=== PATIENT | female | born 1960 | race African-American/Black ===

== ENCOUNTER → 2018-02-09 | Outpatient (CLI) | payer MEDICARE | LOC: M LRY 12:50 | DX: M17.0 Bilateral primary osteoarthritis of knee (principal); M25.561 Pain in right knee | CPT/HCPCS: 73564; G0463 ==

== ENCOUNTER → 2018-03-13 | Outpatient (CLI) | payer MEDICARE | LOC: M LRY 08:38 | DX: Z13.228 Encounter for screening for other metabolic disorders (principal); E78.5 Hyperlipidemia, unspecified; E55.9 Vitamin D deficiency, unspecified; M54.5 Low back pain; M25.562 Pain in left knee; F32.9 Major depressive disorder, single episode, unspecified; F41.1 Generalized anxiety disorder | CPT/HCPCS: 84443 ==

== ENCOUNTER → 2018-03-13 | Outpatient (REF) | payer MEDICARE ==
[2018-03-13 12:13] LABS: BASO % 0.6 % (0.0-1.0); EOS # 0.1 10^3/uL (0.0-0.50); EOS % 1.2 % (0.0-3.0); HEMATOCRIT 35.8 % (36.0-47.0); HEMOGLOBIN 11.6 g/dl (12.0-15.5); IMMATURE GRANULOCYTE % 0.2 % (0-3.0); LYMPH # 2.6 10^3/uL (1.5-4.5); LYMPH % 52.9 % (24.0-44.0); MEAN CORPUSCULAR HEMOGLOBIN 30.1 pg (27.0-33.0); MEAN CORPUSCULAR HGB CONC 32.4 g/dl (32.0-36.5); MONO # 0.4 10^3/uL (0.0-0.8); MONO % 7.5 % (0.0-5.0); NEUTROPHILS # 1.8 10^3/uL (1.8-7.7); NEUTROPHILS % 37.6 % (36.0-66.0); PLATELET COUNT, AUTOMATED 279 10^3/uL (150-450); RED BLOOD COUNT 3.85 10^6/uL (4.00-5.40); RED CELL DISTRIBUTION WIDTH 14.3 % (11.5-14.5); WHITE BLOOD COUNT 4.8 10^3/uL (4.0-10.0)
[2018-03-13 12:21] LABS: ALBUMIN 3.6 GM/DL (3.2-5.2); ALBUMIN/GLOBULIN RATIO 0.95 (1.00-1.93); ALKALINE PHOSPHATASE 76 U/L (45-117); ALT/SGPT 26 U/L (12-78); ANION GAP 4 MEQ/L (8-16); AST/SGOT 97 U/L (7-37); BILIRUBIN,TOTAL 0.4 MG/DL (0.2-1.0); BLOOD UREA NITROGEN 9 MG/DL (7-18); CALCIUM LEVEL 9.3 MG/DL (8.5-10.1); CARBON DIOXIDE LEVEL 31 MEQ/L (21-32); CHLORIDE LEVEL 104 MEQ/L (98-107); CHOLESTEROL LEVEL 271 MG/DL (<200); CHOLESTEROL RISK RATIO 4.169 (<5); CREATININE FOR GFR 0.75 MG/DL (0.55-1.30); GLOMERULAR FILTRATION RATE > 60.0 (>51); GLUCOSE, FASTING 87 MG/DL (70-100); HDL CHOLESTEROL 65 MG/DL (>40); LDL CHOLESTEROL 167 MG/DL (<100); NON-HDL-C 206 MG/DL; POTASSIUM SERUM 4.6 MEQ/L (3.5-5.1); PTH INTACT 91.5 PG/ML (18.5-88.0); SODIUM LEVEL 139 MEQ/L (136-145); TOTAL 25(OH) VITAMIN D 12.6 NG/ML (30.0-100.0); TOTAL PROTEIN 7.4 GM/DL (6.4-8.2); TRIGLYCERIDES LEVEL 194 MG/DL (<150)
[2018-03-13 13:16] LABS: ESTIMATED AVERAGE GLUCOSE 120 MG/DL (60-110); HEMOGLOBIN A1c 5.8 %
== END ==
LOC: M SFHCLERA 08:27
DX: Z13.228 Encounter for screening for other metabolic disorders (principal); E78.5 Hyperlipidemia, unspecified; E55.9 Vitamin D deficiency, unspecified; M54.5 Low back pain; M25.561 Pain in right knee; F32.9 Major depressive disorder, single episode, unspecified; F41.1 Generalized anxiety disorder

== ENCOUNTER → 2018-03-14 | Outpatient (REF) | payer MEDICARE ==
[2018-03-15 14:22] LABS: INSULIN LEVEL 13.2 uIU/mL (2.6-24.9)
== END ==
LOC: M LRY 11:33
DX: Z13.228 Encounter for screening for other metabolic disorders (principal); E78.5 Hyperlipidemia, unspecified
CPT/HCPCS: 83525

== ENCOUNTER → 2018-04-13 | Outpatient (CLI) | payer MEDICARE ==
--- NOTE | 2018-04-13 16:23 | REP ---
CT lumbar spine without contrast History: Back pain The rudimentary disc is present at the S1-2 level. There is no disc bulge or herniation at the L1-2 level. The L1 nerves exit the neural foramina without compression. A diffuse disc bulge is present at the L2-3 level. There is hypertrophy of the ligamenta flava and posterior to the facets. These findings produce mild central canal stenosis. The L2 nerves exit the neural foramina without compression. A diffuse disc bulge is present at the L3-4 level. There is hypertrophy of the ligamenta flava and posterior to the facets. These findings produce mild central canal stenosis. The L3 nerves exit the neural foramina without compression. The patient is status post L4 the S1 anterior and posterior spinal fusion. Metal hardware and bone graft material are present. The spinal canal at the L4-5 level is obscured by metal artifact. The L4 nerves exit the neural foramina without compression. The spinal canal is almost completely obscured at the L5-L1 level. The L5 nerves exit the neural foramina without compression. The L4-5 and L5-L1 intervertebral discs are decreased in height consistent with disc degeneration. There is no subluxation. Osteophytes are present at the sacroiliac joints. Impression 1. The patient is status post L4-S1 anterior and posterior spinal fusion. There is anatomic alignment. 2. Mild central canal stenosis at the L2-3 and L3-4 levels secondary to disc bulge, ligamentous and facet hypertrophy. Electronically Signed by Andi Schmidt MD 04/13/2018 04:15 P
== END ==
LOC: M RAD 15:47
PROVIDERS: ATTEND Nurse Practitioner Family
DX: M54.5 Low back pain (principal)

== ENCOUNTER → 2018-05-17 | Outpatient (CLI) | payer MEDICARE ==
--- NOTE | 2018-05-17 12:48 | REP ---
LEFT LOWER EXTREMITY DUPLEX VEINS: HISTORY: Swelling. There are no filling defects in the deep venous system. The deep venous system is patent. IMPRESSION: There is no deep venous thrombosis. Electronically Signed by Andi Schmidt MD 05/17/2018 12:49 P
== END ==
LOC: M RAD 11:13
PROVIDERS: ATTEND Family Medicine
DX: M79.89 Other specified soft tissue disorders (principal)

== ENCOUNTER 2018-05-30 13:15 | Outpatient (RCR) | payer MEDICARE | END 2018-05-31 | LOC: M PT 13:15 | PROVIDERS: ATTEND Nurse Practitioner Family | DX: M25.561 Pain in right knee (principal) ==

== ENCOUNTER 2018-06-27 12:30 | Outpatient (RCR) | payer MEDICARE | END 2018-06-28 | LOC: M PT 12:30 | PROVIDERS: ATTEND Nurse Practitioner Family | DX: M25.561 Pain in right knee (principal) ==

== ENCOUNTER 2018-06-29 15:37 | Outpatient (RCR) | payer MEDICARE | END 2018-07-29 | LOC: M PT 15:37 | PROVIDERS: ATTEND Nurse Practitioner Family | DX: M25.561 Pain in right knee (principal) ==

== ENCOUNTER → 2018-11-23 | Outpatient (CLI) | payer MEDICARE ==
--- NOTE | 2018-11-23 10:44 | REP ---
Right ribs three views: There is no rib fracture or other rib abnormality. PA chest: There are no comparisons. There is no pneumothorax, hemothorax or pulmonary contusion. No pleural thickening. Lung blunt are clear. Cardiac size is normal. The jeanne, mediastinum, skeletal structures are unremarkable. Impression: Negative PA chest. Electronically Signed by Brandt Mena MD 11/23/2018 10:35 A
[2018-11-23 12:41] LABS: BASO % 0.6 % (0.0-1.0); EOS # 0.1 10^3/uL (0.0-0.50); HEMATOCRIT 38.6 % (36.0-47.0); HEMOGLOBIN 12.5 g/dl (12.0-15.5); LYMPH # 2.7 10^3/uL (1.5-4.5); MEAN CORPUSCULAR HEMOGLOBIN 30.8 pg (27.0-33.0); MEAN CORPUSCULAR HGB CONC 32.4 g/dl (32.0-36.5); MEAN CORPUSCULAR VOLUME 95.1 fl (80.0-96.0); MONO # 0.3 10^3/uL (0.0-0.8); MONO % 4.9 % (0.0-5.0); NEUTROPHILS # 3.2 10^3/uL (1.8-7.7); NEUTROPHILS % 50.3 % (36.0-66.0); PLATELET COUNT, AUTOMATED 286 10^3/uL (150-450); RED BLOOD COUNT 4.06 10^6/uL (4.00-5.40); WHITE BLOOD COUNT 6.3 10^3/uL (4.0-10.0)
[2018-11-23 13:14] LABS: ALBUMIN 3.7 GM/DL (3.2-5.2); ALT/SGPT 20 U/L (12-78); BILIRUBIN,TOTAL 0.4 MG/DL (0.2-1.0); BLOOD UREA NITROGEN 8 MG/DL (7-18); CALCIUM LEVEL 9.3 MG/DL (8.5-10.1); CARBON DIOXIDE LEVEL 29 MEQ/L (21-32); CHLORIDE LEVEL 105 MEQ/L (98-107); CHOLESTEROL LEVEL 271 MG/DL (<200); CHOLESTEROL RISK RATIO 3.927 (<5); CREATININE FOR GFR 0.82 MG/DL (0.55-1.30); FREE T4 1.07 NG/DL (0.76-1.46); GLOMERULAR FILTRATION RATE > 60.0 (>51); GLUCOSE, FASTING 99 MG/DL (70-100); HDL CHOLESTEROL 69 MG/DL (>40); LDL CHOLESTEROL 174 MG/DL (<100); NON-HDL-C 202 MG/DL; POTASSIUM SERUM 4.4 MEQ/L (3.5-5.1); SODIUM LEVEL 140 MEQ/L (136-145); TRIGLYCERIDES LEVEL 142 MG/DL (<150)
[2018-11-23 13:16] LABS: TOTAL 25(OH) VITAMIN D 30.1 NG/ML (30.0-100.0)
[2018-11-23 13:18] LABS: HEMOGLOBIN A1c 6.6 %
== END ==
LOC: M LRY 09:50
PROVIDERS: ATTEND Nurse Practitioner Family
DX: E78.5 Hyperlipidemia, unspecified (principal); R73.01 Impaired fasting glucose; E55.9 Vitamin D deficiency, unspecified

== ENCOUNTER → 2018-12-05 | Outpatient (CLI) | payer MEDICARE ==
[~2018-12-05] MED LIST: AMLO5TAB6; AUGM875T28 PO; LOSA25TA14; PARO15TA; PRED20TA PO; PROP10TA56; TRUL10IN; VITA500054
--- NOTE | 2018-12-05 11:42 | REP ---
RENAL ULTRASOUND WITH DUPLEX DOPPLER ULTRASOUND RENAL ARTERIES: Real-time ultrasound evaluation of the kidneys performed. Kidneys are normal in size and echotexture, right kidney measuring 9.2 x 5.6 x 4.1 cm and left kidney 9.4 x 5.2 x 4.3 cm. There is no renal mass, hydronephrosis, or nephrolithiasis. Urinary bladder is mildly distended and grossly unremarkable. Real-time ultrasound evaluation and duplex Doppler interrogation of the renal arteries is performed bilaterally. Peak systolic velocity of the abdominal aorta at the level of the renal arteries is 58.6 cm/s. Peak systolic velocity of the main right renal artery is 116.9 cm/s, renal to aortic ratio 2.0. Resistive indices are measured in the upper, middle, and lower thirds of the right kidney and range between 0.31 and 0.52. Acceleration times range between 0.02 and 0.03. Peak systolic velocity in the main left renal artery is 127 cm/s, renal to aortic ratio is 2.2. Resistive indices left kidney range between 0.33 and 0.59. Acceleration times range between 0.03 and 0.06. Impression: No compelling duplex Doppler sonographic evidence of significant renal artery stenosis. Electronically Signed by Brandt Patiño MD 12/06/2018 12:33 A
== END ==
LOC: M RAD 07:47
PROVIDERS: ATTEND Nurse Practitioner Family
DX: I10 Essential (primary) hypertension (principal)

== ENCOUNTER → 2019-01-21 | Outpatient (CLI) | payer MEDICARE ==
--- NOTE | 2019-01-29 15:37 | REP ---
BILATERAL MAMMOGRAM WITH 3D TOMOSYNTHESIS: COMPARISON: No comparison study. HISTORY: Family history of breast cancer over age 50 in paternal aunt. Lori Lopez lifetime risk of breast cancer 9.7%. MLO and CC views of both breasts performed. Mild scattered fibroglandular tissue is seen diffusely bilaterally. In the outer aspect of each breast anteriorly there is a fairly well circumscribed nodule, maximum diameter 4 mm. On both sides there is a suggestion of a lucent notch in each nodule. This would suggest that these represent intramammary lymph nodes. No other mass is seen and there are no suspicious clusters of microcalcifications. IMPRESSION: ACR 0 incomplete. 4 mm well circumscribed nodule in the outer aspect of each breast anteriorly. There is a suggestion of a lucent notch in each nodule which would suggest that these represent intramammary lymph nodes. Recommend spot compression views and ultrasound bilaterally to further evaluate. BIRADS 0: BI-RADS/ACR category 0 mammogram, Incomplete: Need additional imaging evaluation and/or prior mammograms for comparison. This mammogram was interpreted with the aid of an FDA-approved computer-aided detection system. The patient states she/he has not had a clinical breast exam in over a year. The patient letter being requested is M0.
== END ==
LOC: M WHC 11:36
PROVIDERS: ATTEND Nurse Practitioner Family
DX: Z12.31 Encounter for screening mammogram for malignant neoplasm of breast (principal); N63.20 Unspecified lump in the left breast, unspecified quadrant; N63.10 Unspecified lump in the right breast, unspecified quadrant

== ENCOUNTER → 2019-02-18 | Outpatient (CLI) | payer MEDICARE ==
--- NOTE | 2019-02-18 14:39 | REP ---
BILATERAL DIAGNOSTIC MAMMOGRAM AND BREAST ULTRASOUND: Bilateral spot compression views performed in multiple projections and compared to recent mammogram of 01/21/2019. These confirm the presence of a smoothly marginated 4 mm nodule in the outer aspect of each breast. Again, there is a suggestion of a lucent notch and fatty hilum, suggesting that these represent intramammary lymph nodes. Real-time sonographic evaluation of the outer aspect of each breast is performed. Multiple bilateral axillary lymph nodes are present which demonstrate normal morphology and fatty jeanne. Subcentimeter lymph nodes are identified. These probably correspond to the mammographic abnormalities described above. IMPRESSION: BIRADS 3: BI-RADS/ACR category 3 mammogram. Probably Benign Findings. ACR 3 probably benign. 4 mm nodule in the outer aspect of each breast most likely represent subcentimeter intramammary lymph nodes. Recommend 6-month followup bilateral mammogram to ensure stability. Patient letter being requested is M3. Electronically Signed by Brandt Patiño MD 02/20/2019 09:25 A
== END ==
LOC: M RAD 12:21
PROVIDERS: ATTEND Nurse Practitioner Family
DX: R92.8 Other abnormal and inconclusive findings on diagnostic imaging of breast (principal)

== ENCOUNTER 2019-03-16 12:20 | Emergency (ER) | payer MEDICARE ==
[~2019-03-16] VITALS: Ht 165.1 cm; Wt 98.6 kg
[2019-03-16] MEDS ORDERED: PARO15TA (12:27)
[2019-03-16] MEDS ORDERED: AMLO5TAB6 (12:27)
[2019-03-16] MEDS ORDERED: TRUL10IN (12:27)
[2019-03-16] MEDS ORDERED: PROP10TA56 (12:27)
[2019-03-16] MEDS ORDERED: LOSA25TA14 (12:27)
[2019-03-16] MEDS ORDERED: VITA500054 (12:27)
[2019-03-16] MEDS ORDERED: dexameTHASONE 20 MG/5 ML VIAL (J1100) IV ONE (12:45)
[2019-03-16 13:02] LABS: BASO % 0.3 % (0.0-1.0); EOS % 0.3 % (0.0-3.0); HEMATOCRIT 37.3 % (36.0-47.0); HEMOGLOBIN 12.3 g/dl (12.0-15.5); LYMPH # 1.6 10^3/uL (1.5-5.0); LYMPH % 16.3 % (24.0-44.0); MEAN CORPUSCULAR HEMOGLOBIN 31.5 pg (27.0-33.0); MEAN CORPUSCULAR VOLUME 95.6 fl (80.0-96.0); MONO # 0.5 10^3/uL (0.0-0.8); MONO % 5.2 % (0.0-5.0); NEUTROPHILS # 7.5 10^3/uL (1.5-8.5); NEUTROPHILS % 77.6 % (36.0-66.0); PLATELET COUNT, AUTOMATED 280 10^3/uL (150-450); WHITE BLOOD COUNT 9.7 10^3/uL (4.0-10.0)
[2019-03-16 13:18] LABS: BLOOD UREA NITROGEN 8 MG/DL (7-18); CALCIUM LEVEL 8.9 MG/DL (8.5-10.1); CARBON DIOXIDE LEVEL 29 MEQ/L (21-32); CHLORIDE LEVEL 102 MEQ/L (98-107); CREATININE FOR GFR 0.88 MG/DL (0.55-1.30); GLOMERULAR FILTRATION RATE > 60.0 (>51); GLUCOSE, FASTING 97 MG/DL (70-100); POTASSIUM SERUM 4.4 MEQ/L (3.5-5.1); SODIUM LEVEL 138 MEQ/L (136-145)
[2019-03-16] MEDS ORDERED: ISOVUE-370 76% 100ML VIAL (Q9967) As Ordered ONE (13:28)
[2019-03-16] MEDS ORDERED: AMPICILLIN SOD/SULBACTAM SOD 3 GM in D5W MINI-BAG PLUS 100 ML IV ONE (14:15)
[2019-03-16] MEDS ORDERED: AUGM875T28 PO (14:19)
[2019-03-16] MEDS ORDERED: PRED20TA PO (14:19)
--- NOTE | 2019-03-16 14:38 | REP ---
SOFT TISSUE CT NECK WITH IV CONTRAST: HISTORY: Peritonsillar abscess. No comparison imaging. CT CONTRAST DOSE: 75 mL of intravenous Isovue-370. CT FINDINGS: Parotid and submandibular glands are normal and symmetric. Tonsillar soft tissues are somewhat prominent bilaterally, but there is no evidence of abscess within the tonsillar tissue or in the peritonsillar soft tissues. Similarly, there is a mild fullness in the adenoidal soft tissues. No retropharyngeal or adenoidal abscess is seen. Epiglottis and aryepiglottic folds are intact. No glottic or subglottic airway lesion is seen. Thyroid lobes are normal and symmetric. There are shoddy anterior and posterior cervical lymph nodes bilaterally. The largest of these on the left is in an anterior cervical node measuring 11 mm in short-axis dimension. On the right, the largest lymph node measures 13 mm in short-axis dimension. No abnormal fluid collection is seen. Incidental note is made of ossification and hypertrophy of the left stylomastoid process. This can be a cause of dysphagia. Otherwise, it is an incidental finding. No bony destructive lesion is seen. Visualized paranasal sinuses are clear. No intraorbital abnormality is seen. IMPRESSION: No abscess is seen. Tonsillar and adenoidal hypertrophy. Incidental note is made of ossification and hypertrophy of the stylomastoid process on the left which can be a cause of dysphasia. Electronically Signed by Jonathon Mendez MD 03/16/2019 05:04 P
[2019-03-16 15:36] VITALS: BP 117/69
== END 2019-03-16 16:11 | disposition home or self-care (01) ==
LOC: M ED 12:20
DX: J36 Peritonsillar abscess (principal); I10 Essential (primary) hypertension; K21.9 Gastro-esophageal reflux disease without esophagitis
CPT/HCPCS: 70491; 80048; 85025; 87880; 96365; 96375; 99284; J1100; Q9967

== ENCOUNTER 2019-04-02 09:26 | Emergency (ER) | payer MEDICARE ==
[~2019-04-02] VITALS: Ht 162.6 cm; Wt 97.7 kg
[2019-04-02] MEDS ORDERED: ACETAMINOPHEN 500 MG TAB PO ONE (10:00)
[2019-04-02] MEDS ORDERED: PROMETHAZINE INJ 25 MG/ML VIAL (J2550) IV ONE (10:00)
[2019-04-02] MEDS ORDERED: NS 1,000 ML IV ONE (10:00)
--- NOTE | 2019-04-02 10:39 | REP ---
CT brain: 04/02/2019. Indication: Headache. Comparison: None. Technique: Unenhanced axial CT images of the brain were obtained from skull base to vertex. Findings: There is no acute intracranial hemorrhage, acute cortical infarction, mass effect or hydrocephalous. Mild cerebellar volume loss is noted. There is no significant fluid within the visualized paranasal sinuses or mastoid air cells. Impression: No acute intracranial process. Electronically Signed by Robby Rene DO 04/02/2019 10:31 A
[2019-04-02 10:44] LABS: BASO % 1.1 % (0.0-1.0); EOS % 1.1 % (0.0-3.0); HEMATOCRIT 37.3 % (36.0-47.0); LYMPH # 1.8 10^3/uL (1.5-5.0); LYMPH % 48.5 % (24.0-44.0); MEAN CORPUSCULAR HEMOGLOBIN 30.9 pg (27.0-33.0); MEAN CORPUSCULAR HGB CONC 32.2 g/dl (32.0-36.5); MEAN CORPUSCULAR VOLUME 96.1 fl (80.0-96.0); MONO # 0.3 10^3/uL (0.0-0.8); MONO % 7.8 % (0.0-5.0); NEUTROPHILS # 1.5 10^3/uL (1.5-8.5); NEUTROPHILS % 41.2 % (36.0-66.0); PLATELET COUNT, AUTOMATED 258 10^3/uL (150-450); RED BLOOD COUNT 3.88 10^6/uL (4.00-5.40); WHITE BLOOD COUNT 3.7 10^3/uL (4.0-10.0)
[2019-04-02 11:21] LABS: ALBUMIN 3.4 GM/DL (3.2-5.2); ALT/SGPT 28 U/L (12-78); BILIRUBIN,TOTAL 0.4 MG/DL (0.2-1.0); BLOOD UREA NITROGEN 7 MG/DL (7-18); CALCIUM LEVEL 9.1 MG/DL (8.5-10.1); CARBON DIOXIDE LEVEL 27 MEQ/L (21-32); CHLORIDE LEVEL 107 MEQ/L (98-107); CK-MB VALUE MASS < 1.0 NG/ML (<3.6); CPK CREATINE PHOSPHOKINASE 70 U/L (26-192); CREATININE FOR GFR 0.69 MG/DL (0.55-1.30); GLOMERULAR FILTRATION RATE > 60.0 (>51); GLUCOSE, FASTING 90 MG/DL (70-100); MB/CK RELATIVE INDEX 1.43 (< OR =4); POTASSIUM SERUM 3.9 MEQ/L (3.5-5.1); SODIUM LEVEL 141 MEQ/L (136-145); TOTAL PROTEIN 7.9 GM/DL (6.4-8.2); TROPONIN I < 0.02 NG/ML (< 0.10)
[2019-04-02] MEDS ORDERED: KETOROLAC 30 MG/ML VIAL (J1885) IV ONE (12:30)
[2019-04-02 13:46] VITALS: BP 109/73
--- NOTE | 2019-04-02 13:54 | REP ---
MRI brain: 04/02/2019. Indication: Headache. Comparison: No previous MRI studies are available for direct comparison. Technique: Multiplanar short and long TR sequences of the brain were obtained without IV Gadolinium. Findings: There are no areas of restricted diffusion. There is no intracranial mass effect, hydrocephalus or significant hemorrhage. No significant signal abnormalities are present within the brainstem or brain parenchyma. The large intracranial flow voids are unremarkable. Impression: No acute intracranial process. Electronically Signed by Robby Rene DO 04/02/2019 01:45 P
--- NOTE | 2019-04-02 17:10 | ECGEPIP ---
[facility] - ED Test Date: 2019-04-02 Pat Name: RETA LONG Department: Room: - Gender: Female Cooperer: : 1960 Requested By: MCKAY Fontenot PA-C Order Number: [id number] Reading MD: Alondra Alberts Measurements Intervals [place] Rate: 55 P: 40 AK: 155 QRS: 17 QRSD: 86 T: 49 QT: 453 QTc: 437 Interpretive Statements SINUS BRADYCARDIA NSTTW abnormalities NO PRIOR Electronically Signed on 04-02-2019 17:10:37 EST by Alondra Alberts
== END 2019-04-02 14:23 | disposition home or self-care (01) ==
LOC: M ED 09:26
DX: R51 Headache (principal); E11.9 Type 2 diabetes mellitus without complications; I10 Essential (primary) hypertension; F32.9 Major depressive disorder, single episode, unspecified; F41.9 Anxiety disorder, unspecified; Z88.5 Allergy status to narcotic agent; Z91.040 Latex allergy status; Z88.8 Allergy status to other drugs, medicaments and biological substances
CPT/HCPCS: 36415; 70450; 70551; 80053; 82550; 82553; 84443; 84484; 85025; 93005; 96374; 96375; 99284; J1885

== ENCOUNTER 2019-04-30 06:26 | Emergency (ER) | payer MEDICARE ==
[~2019-04-30] VITALS: Ht 162.6 cm; Wt 102.3 kg
[2019-04-30] MEDS ORDERED: FLUORESCEIN OPHTH 1 MG STRIP OU ONE (07:00)
[2019-04-30] MEDS ORDERED: TETRACAINE 0.5% OPHTH SOLN 4ML OU ONE (07:00)
[2019-04-30 08:06] LABS: HEMATOCRIT 34.3 % (36.0-47.0); HEMOGLOBIN 10.9 g/dl (12.0-15.5); MEAN CORPUSCULAR HEMOGLOBIN 30.7 pg (27.0-33.0); MEAN CORPUSCULAR HGB CONC 31.8 g/dl (32.0-36.5); MEAN CORPUSCULAR VOLUME 96.6 fl (80.0-96.0); PLATELET COUNT, AUTOMATED 259 10^3/uL (150-450); RED BLOOD COUNT 3.55 10^6/uL (4.00-5.40)
[2019-04-30 08:16] LABS: WHITE BLOOD COUNT 8.6 10^3/uL (4.0-10.0)
[2019-04-30 08:23] LABS: C REACTIVE PROTEIN QUANTITATIV 2.1 MG/DL (0.00-0.30)
[2019-04-30 08:39] LABS: ERYTHROCYTE SEDIMENTATION RATE 52 mm/hr (0-30)
[2019-04-30] MEDS ORDERED: KETOROLAC 30 MG/ML VIAL (J1885) IM ONE (08:45)
[2019-04-30 08:46] LABS: ATYPICAL LYMPH 3 % (0-5); EOSINOPHILS 3 % (0-3); LYMPHOCYTES 58 % (16-44); MONOCYTES 3 % (0-5); NEUTROPHILS 33 % (28-66); PLATELET ESTIMATE NORMAL (NORMAL)
[2019-04-30 08:47] LABS: ANISOCYTOSIS 1+
[2019-04-30 09:05] VITALS: BP 146/82
[2019-04-30 09:27] LABS: PERCENT SATURATION 15.1 % (13.2-45.0)
[2019-04-30 10:21] LABS: FOLATE 7.6 NG/ML
== END 2019-04-30 09:14 | disposition home or self-care (01) ==
LOC: M ED 06:26
DX: H57.13 Ocular pain, bilateral (principal); H53.143 Visual discomfort, bilateral; D64.9 Anemia, unspecified; F41.9 Anxiety disorder, unspecified; F33.9 Major depressive disorder, recurrent, unspecified; E11.9 Type 2 diabetes mellitus without complications; I10 Essential (primary) hypertension; Z88.5 Allergy status to narcotic agent; Z88.6 Allergy status to analgesic agent; Z91.040 Latex allergy status; Z79.899 Other long term (current) drug therapy
CPT/HCPCS: 36415; 80047; 82607; 82728; 82746; 83550; 85025; 85652; 86140; 96372; 99284; J1885

== ENCOUNTER → 2019-05-02 | Outpatient (CLI) | payer MEDICARE ==
[2019-05-02 16:01] LABS: BASO % 0.5 % (0.0-1.0); EOS # 0.1 10^3/uL (0.0-0.5); EOS % 1.3 % (0.0-3.0); HEMATOCRIT 37.7 % (36.0-47.0); HEMOGLOBIN 11.7 g/dl (12.0-15.5); LYMPH # 2.5 10^3/uL (1.5-5.0); LYMPH % 45.1 % (24.0-44.0); MEAN CORPUSCULAR HEMOGLOBIN 30.8 pg (27.0-33.0); MEAN CORPUSCULAR VOLUME 99.2 fl (80.0-96.0); MONO # 0.4 10^3/uL (0.0-0.8); MONO % 6.9 % (0.0-5.0); NEUTROPHILS # 2.5 10^3/uL (1.5-8.5); PLATELET COUNT, AUTOMATED 273 10^3/uL (150-450); WHITE BLOOD COUNT 5.5 10^3/uL (4.0-10.0)
[2019-05-02 16:09] LABS: ALBUMIN 3.5 GM/DL (3.2-5.2); ALT/SGPT 18 U/L (12-78); BILIRUBIN,TOTAL 0.4 MG/DL (0.2-1.0); BLOOD UREA NITROGEN 14 MG/DL (7-18); C REACTIVE PROTEIN QUANTITATIV 3.05 MG/DL (0.00-0.30); CALCIUM LEVEL 9.3 MG/DL (8.5-10.1); CARBON DIOXIDE LEVEL 29 MEQ/L (21-32); CHLORIDE LEVEL 105 MEQ/L (98-107); CHOLESTEROL LEVEL 295 MG/DL (< 200); CPK CREATINE PHOSPHOKINASE 60 U/L (26-192); CREATININE FOR GFR 0.83 MG/DL (0.55-1.30); GLOMERULAR FILTRATION RATE > 60.0 (>51); GLUCOSE, FASTING 89 MG/DL (70-100); LDH LACTATE DEHYDROGENASE 183 U/L (84-246); PHOSPHORUS LEVEL 2.8 MG/DL (2.5-4.9); POTASSIUM SERUM 4.6 MEQ/L (3.5-5.1); RHEUMATOID FACTOR QUANT < 10.0 IU/ML (<15.0); SODIUM LEVEL 141 MEQ/L (136-145); TOTAL PROTEIN 7.4 GM/DL (6.4-8.2); TRIGLYCERIDES LEVEL 226 MG/DL (<150)
[2019-05-02 16:14] LABS: CHOLESTEROL RISK RATIO 3.159 (<5); FREE T4 1.17 NG/DL (0.76-1.46); THYROID STIMULATING HORMONE 0.753 uIU/ML (0.358-3.740)
[2019-05-02 16:18] LABS: TOTAL 25(OH) VITAMIN D 33.5 NG/ML (30.0-100.0)
[2019-05-02 16:20] LABS: HEMOGLOBIN A1c 5.8 %
[2019-05-02 16:49] LABS: ERYTHROCYTE SEDIMENTATION RATE 57 mm/hr (0-30)
[2019-05-02 19:18] LABS: MALB URINE SIEMENS 6.7 MG/L; MAU/CREAT RATIO 4.5 MCG/MG (0.0-30.0)
[2019-05-07 14:20] LABS: ANCA-ATYPICAL <1:20 titer (Neg:<1:20); ANGIOTENSIN 1 CONVERTING ENZYM 42 U/L (14-82); ANTINUCLEAR ANTIBODIES DIRECT Negative (Negative); CYTOPLASMIC NEUTROP AB ANCA-C <1:20 titer (Neg:<1:20); HLA-B27 Negative (.); Lyme Disease IgG/IgM Antibodie <0.91 ISR (0.00-0.90); Lyme Disease IgM Ab Quantitati <0.80 index (0.00-0.79); PERINUCLEAR AB ANCA-P <1:20 titer (Neg:<1:20)
== END ==
LOC: M PLALAB 12:23
PROVIDERS: ATTEND Nurse Practitioner Family
DX: E11.9 Type 2 diabetes mellitus without complications (principal); E78.5 Hyperlipidemia, unspecified; E55.9 Vitamin D deficiency, unspecified

== ENCOUNTER → 2019-05-11 | Outpatient (CLI) | payer MEDICARE ==
[2019-05-11 18:32] LABS: BASO % 0.6 % (0.0-1.0); EOS # 0.1 10^3/uL (0.0-0.5); EOS % 0.8 % (0.0-3.0); HEMATOCRIT 36.4 % (36.0-47.0); HEMOGLOBIN 11.8 g/dl (12.0-15.5); LYMPH # 3.4 10^3/uL (1.5-5.0); MEAN CORPUSCULAR HGB CONC 32.4 g/dl (32.0-36.5); MEAN CORPUSCULAR VOLUME 95.5 fl (80.0-96.0); MONO # 0.4 10^3/uL (0.0-0.8); MONO % 6.1 % (0.0-5.0); NEUTROPHILS # 2.4 10^3/uL (1.5-8.5); NEUTROPHILS % 38.3 % (36.0-66.0); PLATELET COUNT, AUTOMATED 279 10^3/uL (150-450); RED BLOOD COUNT 3.81 10^6/uL (4.00-5.40); WHITE BLOOD COUNT 6.2 10^3/uL (4.0-10.0)
[2019-05-11 18:40] LABS: ALBUMIN 3.7 GM/DL (3.2-5.2); ALT/SGPT 21 U/L (12-78); BILIRUBIN,TOTAL 0.4 MG/DL (0.2-1.0); BLOOD UREA NITROGEN 10 MG/DL (7-18); CALCIUM LEVEL 9.4 MG/DL (8.5-10.1); CARBON DIOXIDE LEVEL 26 MEQ/L (21-32); CHLORIDE LEVEL 106 MEQ/L (98-107); CHOLESTEROL LEVEL 288 MG/DL (<200); CHOLESTEROL RISK RATIO 4.173 (<5); CREATININE FOR GFR 1.02 MG/DL (0.55-1.30); GLOMERULAR FILTRATION RATE > 60.0 (>51); GLUCOSE, FASTING 97 MG/DL (70-100); HDL CHOLESTEROL 69 MG/DL (>40); LDL CHOLESTEROL 178 MG/DL (<100); NON-HDL-C 219 MG/DL; POTASSIUM SERUM 4.3 MEQ/L (3.5-5.1); SODIUM LEVEL 140 MEQ/L (136-145); TOTAL PROTEIN 7.8 GM/DL (6.4-8.2); TRIGLYCERIDES LEVEL 206 MG/DL (<150)
[2019-05-11 19:11] LABS: HEMOGLOBIN A1c 5.9 %
== END ==
LOC: M LRY 14:41
PROVIDERS: ATTEND Physician Assistant
DX: F33.1 Major depressive disorder, recurrent, moderate (principal)

== ENCOUNTER → 2019-06-18 | Outpatient (REF) | payer MEDICARE ==
[~2019-06-18] MED LIST changes: -AMLO5TAB6; +AMLO5TAB6 PO; +OMEP40CA97 PO; -PROP10TA56; +PROP10TA56 PO; +REXU1TAB PO; -TRUL10IN; +TRUL10IN INJ; +VITA500079 PO
== END ==
LOC: M SFHCLERA 14:36
PROVIDERS: ATTEND Nurse Practitioner Family
DX: J00 Acute nasopharyngitis [common cold] (principal)

== ENCOUNTER → 2019-10-04 | Outpatient (CLI) | payer MEDICARE ==
[~2019-10-04] MED LIST changes: -PARO15TA; +PARO30TA4; +VITAD1000T PO
== END ==
LOC: M LABSMTC 09:49
PROVIDERS: ATTEND Anesthesiology
DX: Z01.818 Encounter for other preprocedural examination (principal); Z11.59 Encounter for screening for other viral diseases
CPT/HCPCS: C9803; U0003

== ENCOUNTER 2019-10-07 08:35 | Day surgery (SDC) | payer MEDICARE ==
[~2019-10-07] VITALS: Ht 162.6 cm; Wt 103.0 kg
[~2019-10-07 08:35] MED LIST changes: +NS 1,000 ML IV ONE
[2019-10-07] MEDS ORDERED: fentaNYL 100 MCG/2 ML INJECTION (J3010) As Ordered ONE (08:39)
[2019-10-07] MEDS ORDERED: LIDOCAINE 2% 100MG/5ML SDV (FOR ANES.) As Ordered ONE (08:40)
[2019-10-07] MEDS ORDERED: propofoL 200 MG/20 ML VIAL As Ordered ONE (08:40)
--- NOTE | 2019-10-07 10:32 | ROOR ---
Patient Name: Adriana Leung Procedure Date: 10/07/2019 10:14 AM Date of : 1960 Age: 59 Room: [facility] Gender: Female Note Status: Finalized Procedure: Upper GI endoscopy Indications: Heartburn, Preoperative assessment for bariatric surgery to treat morbid obesity Providers: Parker EISENBERG MD Referring MD: Flory Henry Requesting Provider: Medicines: Monitored Anesthesia Care Complications: No immediate complications. Procedure: Pre-Anesthesia Assessment: - The heart rate, respiratory rate, oxygen saturations, blood pressure, adequacy of pulmonary ventilation, and response to care were monitored throughout the procedure. The Endoscope was introduced through the mouth, and advanced to the second part of duodenum. The upper GI endoscopy was accomplished without difficulty. The patient tolerated the procedure well. Findings: The esophagus was normal. The stomach was normal. The examined duodenum was normal. Biopsies were taken with a cold forceps in the gastric body and in the gastric antrum for Helicobacter pylori testing. Impression: - Normal esophagus. - Normal stomach. - Normal examined duodenum. - Biopsies were taken with a cold forceps for Helicobacter pylori testing. Recommendation: - Await pathology results. - Telephone endoscopist for pathology results in 2 weeks. Parker Eisenberg MD Parker EISENBERG MD 10/07/2019 10:31:50 AM Electronically signed by Parker EISENBERG MD Number of Addenda: 0 Note Initiated On: 10/07/2019 10:14 AM Estimated Blood Loss: Estimated blood loss: none.
--- NOTE | 2019-10-07 10:47 | ROOR ---
Patient Name: Adriana Leung Procedure Date: 10/07/2019 10:15 AM Date of : 1960 Age: 59 Room: [facility] Gender: Female Note Status: Finalized Procedure: Colonoscopy Indications: Screening for colorectal malignant neoplasm Providers: Parker EISENBERG MD Referring MD: Flory Henry Requesting Provider: Medicines: Monitored Anesthesia Care Complications: No immediate complications. Procedure: Pre-Anesthesia Assessment: - The heart rate, respiratory rate, oxygen saturations, blood pressure, adequacy of pulmonary ventilation, and response to care were monitored throughout the procedure. The Colonoscope was introduced through the anus and advanced to 10 cm into the ileum. The colonoscopy was performed without difficulty. The patient tolerated the procedure well. The quality of the bowel preparation was good. Findings: The perianal and digital rectal examinations were normal. Two sessile polyps were found in the splenic flexure. The polyps were diminutive in size. These polyps were removed with a jumbo cold forceps. Resection and retrieval were complete. The exam was otherwise without abnormality on direct and retroflexion views. Internal hemorrhoids were found during retroflexion. The hemorrhoids were moderate. Impression: - Two diminutive polyps at the splenic flexure, removed with a jumbo cold forceps. Resected and retrieved. - Internal hemorrhoids. - The colon examination was otherwise normal on direct and retroflexion views. Recommendation: - Await pathology results. - If the pathology report reveals adenomatous tissue, then repeat the colonoscopy for surveillance in 5 years. - If the pathology report indicates hyperplastic polyp, then repeat colonoscopy for screening purposes in 10 years. - Telephone endoscopist for pathology results in 2 weeks. Parker Eisenberg MD Parker EISENBERG MD 10/07/2019 10:47:05 AM Electronically signed by Parker EISENBERG MD Number of Addenda: 0 Note Initiated On: 10/07/2019 10:15 AM Estimated Blood Loss: Estimated blood loss: none.
[2019-10-07 12:14] VITALS: BP 128/65
== END 2019-10-07 11:25 | disposition home or self-care (01) ==
LOC: M OPP 08:35
PROVIDERS: ATTEND Internal Medicine Gastroenterology
DX: Z01.818 Encounter for other preprocedural examination (principal); Z12.11 Encounter for screening for malignant neoplasm of colon; D12.3 Benign neoplasm of transverse colon; K64.8 Other hemorrhoids; R12 Heartburn; E66.01 Morbid (severe) obesity due to excess calories; F17.210 Nicotine dependence, cigarettes, uncomplicated; Z79.899 Other long term (current) drug therapy; Z80.0 Family history of malignant neoplasm of digestive organs; Z88.5 Allergy status to narcotic agent; Z88.6 Allergy status to analgesic agent; Z91.040 Latex allergy status
CPT/HCPCS: 43239; 45380; 88305; J3010

== ENCOUNTER → 2019-10-18 | Outpatient (CLI) | payer MEDICARE ==
[~2019-10-18] MED LIST changes: -NS 1,000 ML IV ONE
--- NOTE | 2019-10-18 10:48 | REPMRS ---
Patient History The patient states she has not had a clinical breast exam in over a year. Family history of breast cancer at age 50 or over in paternal aunt, prostate cancer at age 50 or over in paternal uncle. No Hormone Replacement Therapy Diagnostic Bilateral Mammo: October 18, 2019 - Exam #: [id number] Bilateral CC and MLO view(s) were taken. Technologist: Maggie Link, Technologist Prior study comparison: February 18, 2019, digital mammo diagnostic bilateral, performed at [facility]. January 21, 2019, bilateral digital woman screen mammo performed at [facility]. FINDINGS: There are scattered fibroglandular densities. The Volpara volumetric breast density category is:B. The previously identified small well circumscribed nodular opacities in each breast are again noted unchanged. There is a notch in the nodule on the right. Most compatible with intramammary lymph nodes. There has been no change in the appearance of the mammogram from the prior studies. There is a mild amount of scattered fibroglandular density which is fairly symmetric. There is no interval development of dominant mass, architectural distortion, or grouped microcalcification suggestive of malignancy. 3-D tomosynthesis shows no additional findings. Assessment: BI-RADS/ACR Category 3 mammogram. Probably Benign Findings. Recommendation Follow-up diagnostic mammogram of both breasts in 6 months (for women over age 40). This patient's Lifetime Breast Cancer Risk is estimated at 9.5 %. This mammogram was interpreted with the aid of an FDA-approved computer-aided dectection system. Electronically Signed By: Juno Mendez MD 10/18/19 0144
== END ==
LOC: M WHC 09:35
PROVIDERS: ATTEND Family Medicine
DX: R92.8 Other abnormal and inconclusive findings on diagnostic imaging of breast (principal)
CPT/HCPCS: 77066; G0279

== ENCOUNTER → 2019-11-08 | Outpatient (CLI) | payer MEDICARE ==
[~2019-11-08] MED LIST changes: +AMLO1TAB24 PO; -AMLO5TAB6 PO; +D31000TA2 PO; +E-Z-GAS II EFFERVESCENT PACKET (SODIUM BICARB./CITRIC ACID/SIMETHICONE) As Ordered ONE; +E-Z-HD 98% w/w 340GM SUSP BTL As Ordered ONE; +E-Z-PAQUE 96% w/w SUSP 176GM BTL As Ordered ONE; -VITAD1000T PO
--- NOTE | 2019-11-10 23:50 | REP ---
Examination Requested: Upper G.I. Series With KUB Reason For Exam: Burping after Taz-en-Y surgery 2 weeks ago Upper GI Air Contrast The procedure was performed by MOLINA Esquivel, under the direct supervision of Dr. Patiño. The images were reviewed with Dr. Patiño. The telehealth coordinator film shows no organomegaly or pathological masses. The intestinal gas pattern appears normal. There is a fusion of L3-L5. The patient is 3 weeks status post Taz-en-Y surgery. Liquid barium was given in the erect position as well as liquid barium in the prone oblique position in order to perform a single contrast upper GI examination. The oral and pharyngeal stages of deglutition were unremarkable. Esophageal transport is efficient and there is no esophagitis, stricture, or mucosal ring noted. There is no hiatal hernia. Gastroesophageal reflux was not visualized during the exam. The stomach demonstrates postsurgical changes consistent with the patient's history of Taz-en-Y. There is free flow of contrast through the anastomosis. There is no evidence of stricture or obstruction. There is no evidence of gastritis, neoplasm, or ulcer disease. The visualized portion of the proximal small bowel appears normal in course and caliber. Impression: 1. Unremarkable upper GI in a patient who is 3 weeks status post Taz-en-Y surgery. 0.2 minutes of fluoroscopy time was utilized for this procedure. Some fluoroscopic images are performed with last image hold technology. These images require no additional radiation. Reviewed by MOLINA Scruggs 11/08/2019 04:10 P Electronically Signed by Brandt Patiño MD 11/10/2019 11:40 P
== END ==
LOC: M RAD 09:23
PROVIDERS: ATTEND Physician Assistant
DX: R14.2 Eructation (principal); R10.9 Unspecified abdominal pain; R11.0 Nausea